=== PATIENT | female | born 1970 | race Caucasian/White ===

== ENCOUNTER 2017-04-22 00:06 | Emergency (ER) | payer MEDICARE ==
[~2017-04-22] VITALS: Ht 167.6 cm; Wt 108.0 kg
[~2017-04-22 00:06] MED LIST: ATEN50TA41 PO; AZIT250T89 PO; BENZ200C48 PO; BP MED; LISI5TAB7 PO; METF10002 PO; METH4TAB2; PROM118S4 PO
[2017-04-22] MEDS ORDERED: HYDROmorphone 1 MG/ML, 1ML ONE ×2 (00:33→01:51)
[2017-04-22] MEDS ORDERED: KETOROLAC 30 MG/1 ML ONE (00:34)
[2017-04-22] MEDS ORDERED: ONDANSETRON 2MG/ML, 2ML ONE (00:34)
[2017-04-22 00:46] LABS: HEMATOCRIT 43.1 % (34.6-47.8); HEMOGLOBIN 14.4 g/dL (11.7-16.4); WHITE BLOOD COUNT 11.3 x10^3/uL (3.4-10)
[2017-04-22] MEDS: HYDROmorphone 1 MG/ML, 1ML IVPush PRN ×2 (00:49→02:08)
[2017-04-22 00:59] LABS: ASPARTATE AMINO TRANSFERASE 22 U/L (15-37); BLOOD UREA NITROGEN 16 mg/dL (7-18)
[2017-04-22] MEDS ORDERED: ONDANSETRON 2MG/ML, 2ML IVPush ONE (01:00)
[2017-04-22] MEDS ORDERED: SODIUM CHLORIDE FLUSH 10ML SYR IVF ONE (01:00)
[2017-04-22] MEDS ORDERED: SODIUM CHLORIDE 0.9% 1,000ML IVBOLUS ONE (01:00)
[2017-04-22] MEDS ORDERED: KETOROLAC 30 MG/1 ML IVPush ONE (01:00)
[2017-04-22 01:05] LABS: DIFF TOTAL CELLS COUNTED 100 CELL DIFF
[2017-04-22 01:11] LABS: LARGE PLATELETS 1+; VERIFY COUNTS? YES
[2017-04-22 02:46] VITALS: BP 134/84
== END 2017-04-22 02:49 | disposition home or self-care (01) ==
LOC: ED 01:33
DX: N13.2 Hydronephrosis with renal and ureteral calculous obstruction (principal); E87.6 Hypokalemia; I10 Essential (primary) hypertension; E11.9 Type 2 diabetes mellitus without complications
CPT/HCPCS: 36415; 74176; 80053; 81001; 83690; 85025; 87086; 96361; 96374; 96375; 96376; 99285; J1170; J1885; J2405; J7030

== ENCOUNTER 2018-03-30 16:22 | Emergency (ER) | payer MEDICARE ==
[~2018-03-30] VITALS: Ht 167.6 cm; Wt 100.5 kg
[~2018-03-30 16:22] MED LIST changes: +CODE118S4 PO; -PROM118S4 PO
[2018-03-30 16:28] VITALS: BP 146/90
[2018-03-30] MEDS ORDERED: ACETAMINOPHEN 325 MG TABLET PO ONE (17:00)
[2018-03-30] MEDS ORDERED: ACETAMINOPHEN 325 MG TABLET ONE (17:03)
== END 2018-03-30 17:12 | disposition home or self-care (01) ==
LOC: ED 17:05
DX: S09.8XXA Other specified injuries of head, initial encounter (principal); W19.XXXA Unspecified fall, initial encounter; Y93.89 Activity, other specified; Y99.8 Other external cause status; Y92.009 Unspecified place in unspecified non-institutional (private) residence as the place of occurrence of the external cause
CPT/HCPCS: 99282